=== PATIENT | male | born 1960 | race Caucasian/White ===

== ENCOUNTER 2025-04-01 15:27 | Emergency (ER) | payer OTHER, MEDICARE ==
[~2025-04-01] VITALS: Ht 167.6 cm; Wt 63.5 kg
[2025-04-01 17:05] LABS: BASOPHILS % (AUTO) 0.4 % (0.0-2.0); EOSINOPHILS # (AUTO) 0.2 K/uL (0.0-0.7); EOSINOPHILS % (AUTO) 2.1 % (0.0-6.0); HEMATOCRIT 43 % (39-51); HEMOGLOBIN 14.9 g/dL (13.5-17.5); LYMPHOCYTES # (AUTO) 0.5 K/uL (0.8-4.8); LYMPHOCYTES % (AUTO) 6.8 % (20.0-44.0); MEAN CORPUSCULAR HEMOGLOBIN 31 PG (26.0-33.0); MEAN CORPUSCULAR HGB CONC 35 g/dl (31.0-36.0); MEAN CORPUSCULAR VOLUME 88 fL (80-96); MONOCYTES # (AUTO) 0.6 K/uL (0.1-1.30); MONOCYTES % (AUTO) 7.6 % (2.0-12.0); NEUTROPHILS # (AUTO) 6.1 K/uL (1.8-8.9); NEUTROPHILS % (AUTO) 83.1 % (43.0-81.0); PLATELET COUNT (AUTO) 185 K/uL (150-450); RED BLOOD CELL COUNT(AUTO) 4.87 MIL/uL (4.5-6.0); RED CELL DISTRIBUTION WIDTH 13.9 % (11.5-15.0); WHITE BLOOD COUNT (AUTO) 7.3 K/uL (4.3-11.0)
[2025-04-01 17:14] LABS: CALCIUM, SERUM 9.9 mg/dL (8.5-10.1); CARBON DIOXIDE 29 mmol/L (21-32); CHLORIDE 101 mmol/L (98-107); GLUCOSE 152 mg/dL (74-106); POTASSIUM 4.2 mmol/L (3.5-5.1); SODIUM SERUM 139 mmol/L (136-145); UREA NITROGEN, BLOOD 25 mg/dL (7-18)
[2025-04-01 17:19] LABS: ALANINE AMINOTRANSFERASE 27 U/L (12-78); ALBUMIN 4.2 g/dL (3.4-5.0); ALKALINE PHOSPHATASE 116 U/L (46-116); ASPARTATE AMINOTRANSFERASE 25 U/L (15-37); BILIRUBIN,DIRECT 0.3 mg/dL (0.0-0.2); BILIRUBIN,TOTAL 1.5 mg/dL (0.2-1.0); TOTAL PROTEIN, SERUM 7.7 g/dL (6.4-8.2)
[2025-04-01] MEDS ORDERED: IBUP-1953 PO (18:42)
[2025-04-01 19:51] VITALS: BP 136/64; TEMP 98.2; O2SAT 98
[2025-04-02] MEDS ORDERED: ATOR40TA PO (23:52)
[2025-04-02] MEDS ORDERED: LOSA25TA27 PO (23:52)
== END 2025-04-01 19:52 | disposition home or self-care (01) ==
LOC: ER 15:32
DX: M54.2 Cervicalgia (principal); R07.89 Other chest pain; V49.3XXA Car occupant (driver) (passenger) injured in unspecified nontraffic accident, initial encounter; Y93.89 Activity, other specified; Y92.415 Exit ramp or entrance ramp of street or highway as the place of occurrence of the external cause; Y99.8 Other external cause status
CPT/HCPCS: 36415; 71045-TC; 72040-TC; 80048-TC; 80076-TC; 84484-TC; 85025-TC

== ENCOUNTER 2025-04-02 20:31 | Inpatient (IN) | payer MEDICARE, OTHER ==
[~2025-04-02] VITALS: Ht 175.3 cm; Wt 68.9 kg
[~2025-04-02 20:31] MED LIST: IBUP-1953 PO
[2025-04-02] MEDS ORDERED: ACETAMINOPHEN ES 500 MG TABLET ONE (21:42)
[2025-04-02] MEDS: ACETAMINOPHEN ES 500 MG TABLET PO ONE (21:45)
[2025-04-02 21:57] LABS: BASOPHILS # (AUTO) 0.1 K/uL (0.0-0.2); BASOPHILS % (AUTO) 0.6 % (0.0-2.0); EOSINOPHILS # (AUTO) 0.1 K/uL (0.0-0.7); HEMATOCRIT 44 % (39-51); HEMOGLOBIN 14.8 g/dL (13.5-17.5); LYMPHOCYTES # (AUTO) 0.8 K/uL (0.8-4.8); LYMPHOCYTES % (AUTO) 9.3 % (20.0-44.0); MEAN CORPUSCULAR HEMOGLOBIN 30 PG (26.0-33.0); MEAN CORPUSCULAR HGB CONC 34 g/dl (31.0-36.0); MEAN CORPUSCULAR VOLUME 88 fL (80-96); MONOCYTES % (AUTO) 11.7 % (2.0-12.0); NEUTROPHILS # (AUTO) 6.7 K/uL (1.8-8.9); NEUTROPHILS % (AUTO) 77.4 % (43.0-81.0); PLATELET COUNT (AUTO) 169 K/uL (150-450); RED BLOOD CELL COUNT(AUTO) 4.96 MIL/uL (4.5-6.0); RED CELL DISTRIBUTION WIDTH 14.1 % (11.5-15.0); WHITE BLOOD COUNT (AUTO) 8.7 K/uL (4.3-11.0)
[2025-04-02 22:08] LABS: INR 1.11 (0.91-1.10); PARTIAL THROMBOPLASTIN TIME 30.2 SEC (24.3-34.3); PROTHROMBIN TIME 11.7 SECS (9.2-11.1)
[2025-04-02 22:13] LABS: LACTIC ACID 1.2 mmol/L (0.4-2.0)
[2025-04-02 22:42] LABS: CALCIUM, SERUM 9.2 mg/dL (8.5-10.1); CREATININE 1.1 mg/dL (0.6-1.3); POTASSIUM 3.7 mmol/L (3.5-5.1)
[2025-04-02] MEDS: IV NS 0.9% 1,000 ML IV ONE (23:00)
[2025-04-02 23:15] LABS: BILIRUBIN,DIRECT 0.3 mg/dL (0.0-0.2)
[2025-04-02 23:19] LABS: BILIRUBIN,TOTAL 1.3 mg/dL (0.2-1.0)
[2025-04-02 23:20] LABS: TOTAL PROTEIN, SERUM 7.4 g/dL (6.4-8.2)
[2025-04-02] MEDS ORDERED: ASPIRIN 325 MG TABLET ONE (23:23)
[2025-04-02 23:26] LABS: INR 1.09 (0.91-1.10); PARTIAL THROMBOPLASTIN TIME 30.1 SEC (24.3-34.3); PROTHROMBIN TIME 11.5 SECS (9.2-11.1)
[2025-04-02] MEDS: ASPIRIN 325 MG TABLET PO ONE (23:29)
[2025-04-02 23:41] LABS: APPEARANCE,URINE CLEAR (CLEAR); BILIRUBIN,URINE NEGATIVE (NEGATIVE); BLOOD, URINE 2+ Ery/uL (NEGATIVE); COLOR,URINE YELLOW (YELLOW); KETONES,URINE 2+ mg/dL (NEGATIVE); LEUKOCYTE ESTERASE ,URINE NEGATIVE (NEGATIVE); NITRITE, URINE NEGATIVE (NEGATIVE); PROTEIN,URINE NEGATIVE (NEGATIVE); UGLUCOSE 3+ mg/dL (NEGATIVE); UROBILINOGEN,URINE 0.2 EU/dL (0.2)
[2025-04-02] MEDS ORDERED: ATOR40TA PO (23:52)
[2025-04-02] MEDS ORDERED: LOSA25TA27 PO (23:52)
[2025-04-02 23:59] LABS: ADD URINE CULTURE NO; BACTERIA,URINE Rare /HPF (None Seen); MUCUS,URINE Few /LPF (None Seen); RBC,URINE 0-2 /HPF (0-2); SQUAMOUS EPITHELIAL CELL,UR Rare /HPF (None Seen); WBC,URINE 0-2 /HPF (0-3)
[2025-04-03] MEDS ORDERED: HEPARIN SODIUM,PORCINE/PF 50 UNIT/5 ML DISP.SYRIN IV STA (01:40)
[2025-04-03] MEDS ORDERED: HEPARIN INFUSION/D5W 500 ML IV ONE (01:44)
[2025-04-03] MEDS ORDERED: HEPARIN SODIUM, PORCINE 5000 UNITS/1 ML VIAL ONE (01:45)
[2025-04-03] MEDS ORDERED: IOHEXOL-300 100 ML VIAL IV ONE (01:47)
[2025-04-03] MEDS ORDERED: IV NS 0.9% 250 ML IV ONE (01:47)
[2025-04-03] MEDS ORDERED: CT SWABBABLE VALVE TRANS SET 1 EA INFUS.SET MC ONE (01:47)
[2025-04-03] MEDS: HEPARIN SODIUM, PORCINE 5000 UNITS/1 ML VIAL IV ONE (02:22)
[2025-04-03] MEDS: HEPARIN INFUSION/D5W 500 ML IV PRN ×2 (02:24→10:32)
[2025-04-03] MEDS ORDERED: NITROGLYCERIN PACKET 1 GM PACKET TOP PRN (02:30)
[2025-04-03] MEDS ORDERED: ONDANSETRON HCL/PF 4 MG/2 ML VIAL IVP PRN (02:30)
[2025-04-03 03:55] VITALS: BP 106/64; TEMP 98.1; O2SAT 98
[2025-04-03 07:29] LABS: BASOPHILS % (AUTO) 0.3 % (0.0-2.0); EOSINOPHILS # (AUTO) 0.2 K/uL (0.0-0.7); EOSINOPHILS % (AUTO) 2.1 % (0.0-6.0); HEMATOCRIT 39 % (39-51); HEMOGLOBIN 13.4 g/dL (13.5-17.5); LYMPHOCYTES # (AUTO) 1.3 K/uL (0.8-4.8); LYMPHOCYTES % (AUTO) 15.4 % (20.0-44.0); MEAN CORPUSCULAR HEMOGLOBIN 30 PG (26.0-33.0); MEAN CORPUSCULAR HGB CONC 35 g/dl (31.0-36.0); MEAN CORPUSCULAR VOLUME 88 fL (80-96); MONOCYTES % (AUTO) 12.5 % (2.0-12.0); NEUTROPHILS # (AUTO) 5.7 K/uL (1.8-8.9); NEUTROPHILS % (AUTO) 69.7 % (43.0-81.0); PLATELET COUNT (AUTO) 149 K/uL (150-450); RED CELL DISTRIBUTION WIDTH 14.1 % (11.5-15.0); WHITE BLOOD COUNT (AUTO) 8.2 K/uL (4.3-11.0)
[2025-04-03] MEDS ORDERED: MAGN250T10 PO (07:48)
[2025-04-03] MEDS ORDERED: METO25TA4 PO (07:48)
[2025-04-03] MEDS ORDERED: EMPA10TA PO (07:48)
[2025-04-03] MEDS ORDERED: CHOL100043 PO (07:48)
[2025-04-03] MEDS ORDERED: PANT40TA49 PO (07:48)
[2025-04-03] MEDS ORDERED: ASPI-1420 PO (07:48)
[2025-04-03 07:58] LABS: CALCIUM, SERUM 8.4 mg/dL (8.5-10.1); CREATININE 0.8 mg/dL (0.6-1.3); MAGNESIUM 2.2 mg/dL (1.8-2.4); PHOSPHORUS 3.1 mg/dL (2.5-4.9); POTASSIUM 3.8 mmol/L (3.5-5.1)
[2025-04-03 08:00] VITALS: BP 125/64; TEMP 98.4; O2SAT 99
[2025-04-03] MEDS: PANTOPRAZOLE 40 MG VIAL IV SCH (09:57)
[2025-04-03 12:00] VITALS: BP 114/60; TEMP 98.6; O2SAT 97
[2025-04-03] MEDS: ASPIRIN EC 81 MG TABLET.DR PO SCH (14:59)
[2025-04-03 16:00] VITALS: BP 118/68; TEMP 99; O2SAT 99
[2025-04-03] MEDS: ATORVASTATIN 40 MG TABLET PO SCH (17:18)
[2025-04-03] MEDS: LOSARTAN POTASSIUM 25 MG TABLET PO SCH (17:19)
[2025-04-03 20:00] VITALS: BP 113/59; TEMP 99; O2SAT 98
[2025-04-03 21:43] VITALS: BP 134/56; TEMP 99; O2SAT 95
[2025-04-04] VITALS: BP 109/56; TEMP 99.2; O2SAT 98
[2025-04-04 00:05] VITALS: BP 109/56; TEMP 99.5; O2SAT 99
[2025-04-04 04:00] VITALS: BP 108/61; TEMP 97.8; O2SAT 99
[2025-04-04 07:08] LABS: BASOPHILS % (AUTO) 0.5 % (0.0-2.0); EOSINOPHILS # (AUTO) 0.3 K/uL (0.0-0.7); EOSINOPHILS % (AUTO) 4.3 % (0.0-6.0); HEMATOCRIT 39 % (39-51); HEMOGLOBIN 13.4 g/dL (13.5-17.5); LYMPHOCYTES % (AUTO) 14.5 % (20.0-44.0); MEAN CORPUSCULAR HEMOGLOBIN 30 PG (26.0-33.0); MEAN CORPUSCULAR HGB CONC 35 g/dl (31.0-36.0); MEAN CORPUSCULAR VOLUME 87 fL (80-96); MONOCYTES # (AUTO) 0.8 K/uL (0.1-1.30); MONOCYTES % (AUTO) 12.2 % (2.0-12.0); NEUTROPHILS # (AUTO) 4.5 K/uL (1.8-8.9); NEUTROPHILS % (AUTO) 68.5 % (43.0-81.0); PLATELET COUNT (AUTO) 169 K/uL (150-450); RED BLOOD CELL COUNT(AUTO) 4.46 MIL/uL (4.5-6.0); WHITE BLOOD COUNT (AUTO) 6.6 K/uL (4.3-11.0)
[2025-04-04 07:24] LABS: CALCIUM, SERUM 8.7 mg/dL (8.5-10.1); CREATININE 0.8 mg/dL (0.6-1.3); MAGNESIUM 2.2 mg/dL (1.8-2.4); PHOSPHORUS 3.5 mg/dL (2.5-4.9); POTASSIUM 3.5 mmol/L (3.5-5.1)
[2025-04-04 08:05] VITALS: BP 109/58; TEMP 98.8; O2SAT 96
[2025-04-04] MEDS: PANTOPRAZOLE 40 MG TABLET.DR PO SCH (08:52)
[2025-04-04] MEDS: METOPROLOL SUCCINATE 25 MG TAB.SR.24H PO SCH (08:52)
[2025-04-04] MEDS: EMPAGLIFLOZIN 10 MG TABLET PO SCH (08:52)
[2025-04-04 15:43] LABS: HIV-1 p24 ANTIGEN NON REACTIVE (NONREACTIVE); HIV-1/2 ANTIBODY NON REACTIVE (NONREACTIVE)
[2025-04-04 16:00] VITALS: BP 99/63; TEMP 98.1; O2SAT 95
[2025-04-04 20:00] VITALS: BP 112/53; TEMP 98.2; O2SAT 98
== END 2025-04-04 21:12 | disposition home or self-care (01) | DRG 281 ==
LOC: ER 20:32 → TELE-TD 04-03 03:19
PROVIDERS: ADMIT Nurse Practitioner Family; ATTEND Nurse Practitioner Family
PROC: 4A023N7 Measurement of Cardiac Sampling and Pressure, Left Heart, Percutaneous Approach (ICD-10-PCS; principal; 2025-04-04)
PROC: B206YZZ Plain Radiography of Right and Left Heart using Other Contrast (ICD-10-PCS; 2025-04-04)
PROC: B201YZZ Plain Radiography of Multiple Coronary Arteries using Other Contrast (ICD-10-PCS; 2025-04-04)
DX: I21.4 Non-ST elevation (NSTEMI) myocardial infarction (principal); T82.855A Stenosis of coronary artery stent, initial encounter; B34.9 Viral infection, unspecified; E78.5 Hyperlipidemia, unspecified; I25.10 Atherosclerotic heart disease of native coronary artery without angina pectoris; Z95.5 Presence of coronary angioplasty implant and graft; Z95.810 Presence of automatic (implantable) cardiac defibrillator; I34.0 Nonrheumatic mitral (valve) insufficiency; Z79.82 Long term (current) use of aspirin; Z79.84 Long term (current) use of oral hypoglycemic drugs; Z79.899 Other long term (current) drug therapy; I25.5 Ischemic cardiomyopathy; H40.9 Unspecified glaucoma; I10 Essential (primary) hypertension; Y71.8 Miscellaneous cardiovascular devices associated with adverse incidents, not elsewhere classified; Y92.89 Other specified places as the place of occurrence of the external cause; R29.898 Other symptoms and signs involving the musculoskeletal system
CPT/HCPCS: 36415; 70450-TC; 71045-TC; 71260-TC; 80048-TC; 80076-TC; 81001; 83605-TC; 83735-TC; 83880; 84100-TC; 84484-TC; 85025-TC; 85610-TC; 85730-TC; 86803; 87040-TC; 87086-TC; 87806; 93307-TC; A4223; G0378; J1642; J1644; J2470; J7030; J7050; Q9967